=== PATIENT | female | born 1990 | race Caucasian/White ===

== ENCOUNTER 2017-03-25 13:54 | Day surgery (SDC) | payer OTHER ==
[2017-03-25] MEDS ORDERED: ONDANSETRON HCL 4 MG/2 ML VIAL ONE ×2 (14:17→17:25)
[2017-03-25] MEDS ORDERED: BUPIVACAINE HCL/PF 0.5% 30 ML VIAL ONE (14:21)
[2017-03-25] MEDS ORDERED: ceFAZolin 1 GM/10 ML VIAL ONE (14:52)
[2017-03-25] MEDS ORDERED: DIPH,PERTUSS(ACELL),TET VAC/PF 0.5 ML VIAL IM ONE (14:52)
[2017-03-25] MEDS ORDERED: NORMAL SALINE MINI-BAG+ 200 ML IV ONE (14:53)
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
[2017-03-25] MEDS ORDERED: FENTANYL 100 MCG/2 ML VIAL ONE (17:09)
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
[2017-03-25] MEDS ORDERED: ROCURONIUM BROMIDE 50 MG/5 ML VIAL IV ONE (17:10)
[2017-03-25] MEDS ORDERED: SUCCINYLCHOLINE CHLORIDE 200 MG/10 ML VIAL ONE (17:10)
[2017-03-25] MEDS ORDERED: BUPIVACAINE/EPI 0.5% 50 ML VIAL INFILTRAT ONE (17:23)
[2017-03-25] MEDS ORDERED: METOCLOPRAMIDE HCL 10 MG/2 ML VIAL ONE (17:24)
[2017-03-25] MEDS ORDERED: DEXAMETHASONE 4 MG/ML VIAL ONE (17:25)
[2017-03-25] MEDS ORDERED: FENTANYL 100 MCG/2 ML VIAL IV PRN (17:25)
[2017-03-25] MEDS ORDERED: NORMAL SALINE FLUSH 20 ML ONE (17:27)
[2017-03-25] MEDS ORDERED: BACITRACIN 50,000 UNITS VIAL IM ONE (17:27)
[2017-03-25] MEDS ORDERED: FAMOTIDINE IN SALINE, ISO-OSM 20 MG/50 ML PIGGYBACK IV ONE (17:33)
[2017-03-25] MEDS ORDERED: KETOROLAC TROMETHAMINE 30 MG/ML VIAL ONE (17:41)
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
[2017-03-25 18:25] VITALS: TEMP 97.7
[2017-03-25 19:18] VITALS: RESP 16; O2SAT 94
[2017-03-25 19:20] VITALS: BP 120/85; PULSE 95
--- NOTE | 2017-03-29 13:29 | RADIOLOGY REPORT ---
Two views of the right shoulder demonstrate no displaced fracture or dislocation. The joints appear unremarkable. IMPRESSION: No displaced injury. If clinically indicated, further evaluation and/or follow-up may be of benefit. MTDD
--- NOTE | 2017-03-29 13:31 | RADIOLOGY REPORT ---
Three views of the right knee are correlated with CT scan of the same date. Anterior soft tissue laceration with scattered radiopaque foreign bodies is noted. No displaced fracture or dislocation is identified. The joints appear unremarkable. IMPRESSION: Anterior laceration with radiopaque foreign bodies. Please see CT scan report of the same date. MTDD
== END 2017-03-25 19:10 | disposition home or self-care (01) ==
LOC: ER 13:54 → SDS 16:47
PROVIDERS: ATTEND Orthopaedic Surgery
CPT/HCPCS: 73700; 90471; 96361; 96365; 96366; 96375; 99285; J0690; J1170; J1885; J2405; J2765; J3010; S0020